=== PATIENT | female | born 1970 | race African-American/Black ===

== ENCOUNTER 2018-10-08 14:48 | Inpatient (IN) ==
[2018-10-08] MEDS: oxyCODONE/ACETAMINOPHEN 5-325 MG TABLET PO PRN ×2 (17:57→22:53)
[2018-10-08] MEDS: METOPROLOL SUCCINATE XL 100 MG TABLET PO SCH ×2 (17:57→20:36)
[2018-10-08] MEDS: DEXTROSE 5% LACTATED RINGERS 1,000 ML IV SCH (18:00)
[2018-10-08] MEDS: CLINDAMYCIN INJ 600 MG in PREMIX 1 EACH IV SCH (18:01)
[2018-10-08] MEDS: AZTREONAM 2,000 MG in SODIUM CHLORIDE 0.9% 100 ML IV SCH (18:38)
[2018-10-08] MEDS: FERROUS SULFATE 325 MG TABLET PO SCH (20:36)
[2018-10-08] MEDS ORDERED: IBUPROFEN 800 MG TABLET PO PRN (20:39)
[2018-10-09] MEDS: CLINDAMYCIN INJ 600 MG in PREMIX 1 EACH IV SCH ×3 (01:01→21:11)
[2018-10-09] MEDS: AZTREONAM 2,000 MG in SODIUM CHLORIDE 0.9% 100 ML IV SCH ×3 (02:17→19:18)
[2018-10-09] MEDS: DEXTROSE 5% LACTATED RINGERS 1,000 ML IV SCH ×3 (04:16→21:17)
[2018-10-09 05:36] LABS: Basophils # 0.1 10*3/uL (0.0-0.2); Basophils % 0.3 % (0.0-0.8); Eosinophils # 0.1 10*3/uL (0.0-0.87); Eosinophils % 0.3 % (0.00-10.9); Hematocrit 26.5 VOL% (35.7-47.0); Hemoglobin 8.1 GM/DL (12.0-16.0); Immature Granulocytes % 0.7 %; Immature Granulocytes Absolute 0.13 #; Lymphocytes # 1.8 10*3/uL (1.4-4.0); Lymphocytes % 9.1 % (21.3-54.2); Mean Corpuscular HGB Conc 30.6 GM/DL (32-36); Mean Corpuscular Volume 75.3 FL (87-102); Monocytes % 5.7 % (1.7-12.7); Neutrophils % 83.9 % (38.7-73.9); Platelet Count 304 T/CUMM (130-400); Red Blood Count 3.52 MC/CUMM (3.8-5.5); Red Cell Distribution Width 14.7 % (9.3-17.3); White Blood Count 19.5 T/CUMM (4-12)
[2018-10-09 05:54] LABS: Alanine Aminotransferase < 6 U/L (13-56); Albumin 2.4 G/DL (3.4-5.0); Alkaline Phosphatase 58 U/L (45-117); Aspartate Amino Transferase 6 U/L (0-37); Blood Urea Nitrogen 6 MG/DL (7-18); Calcium 8.2 MG/DL (8.5-10.1); Glucose 131 MG/DL (74-106); Osmolality,Calculated 276.5 MOS/KG (273-304); Total Protein 6.2 G/DL (6.4-8.3)
[2018-10-09] MEDS ORDERED: ONDANSETRON 4 MG/2 ML VIAL IV PRN (09:53)
[2018-10-09] MEDS ORDERED: MEPERIDINE 25 MG/1 ML VIAL IV PRN (09:53)
[2018-10-09] MEDS: KETOROLAC 30 MG/1 ML VIAL IV SCH ×3 (10:55→21:12)
[2018-10-09] MEDS ORDERED: DIAZEPAM 5 MG TABLET PO ONE (14:08)
[2018-10-09] MEDS ORDERED: MIDAZOLAM 2 MG/2 ML VIAL IV ONE (14:08)
[2018-10-09] MEDS ORDERED: fentaNYL 100 MCG/2 ML VIAL IV ONE (14:08)
[2018-10-09] MEDS ORDERED: SODIUM CHLORIDE 0.45% 1,000 ML IV SCH (14:30)
[2018-10-09] MEDS ORDERED: fentaNYL 100 MCG/2 ML VIAL ONE (15:06)
[2018-10-09] MEDS ORDERED: MIDAZOLAM 2 MG/2 ML VIAL ONE (15:06)
[2018-10-09] MEDS: FERROUS SULFATE 325 MG TABLET PO SCH ×2 (17:12→21:12)
[2018-10-09] MEDS: METOPROLOL SUCCINATE XL 100 MG TABLET PO SCH ×2 (17:12→21:12)
[2018-10-09] MEDS: PANTOPRAZOLE 40 MG TABLET PO SCH (17:12)
[2018-10-10] MEDS: AZTREONAM 2,000 MG in SODIUM CHLORIDE 0.9% 100 ML IV SCH ×3 (02:29→17:07)
[2018-10-10] MEDS: KETOROLAC 30 MG/1 ML VIAL IV SCH ×4 (03:23→21:47)
[2018-10-10] MEDS: CLINDAMYCIN INJ 600 MG in PREMIX 1 EACH IV SCH (03:24)
[2018-10-10 04:36] LABS: Basophils % 0.3 % (0.0-0.8); Eosinophils # 0.3 10*3/uL (0.0-0.87); Eosinophils % 3.4 % (0.00-10.9); Hematocrit 27.4 VOL% (35.7-47.0); Hemoglobin 8.4 GM/DL (12.0-16.0); Immature Granulocytes % 0.3 %; Immature Granulocytes Absolute 0.03 #; Lymphocytes # 1.5 10*3/uL (1.4-4.0); Lymphocytes % 15.6 % (21.3-54.2); Mean Corpuscular HGB Conc 30.7 GM/DL (32-36); Mean Corpuscular Volume 75.7 FL (87-102); Mean Platelet Volume 10.5 FL (9.6-12.0); Monocytes % 6.4 % (1.7-12.7); Platelet Count 316 T/CUMM (130-400); Red Blood Count 3.62 MC/CUMM (3.8-5.5); Red Cell Distribution Width 14.7 % (9.3-17.3); White Blood Count 9.6 T/CUMM (4-12)
[2018-10-10] MEDS: DEXTROSE 5% LACTATED RINGERS 1,000 ML IV SCH ×3 (08:04→21:19)
[2018-10-10] MEDS: METOPROLOL SUCCINATE XL 100 MG TABLET PO SCH ×2 (08:57→21:20)
[2018-10-10] MEDS: FERROUS SULFATE 325 MG TABLET PO SCH ×2 (08:58→21:20)
[2018-10-10] MEDS: PANTOPRAZOLE 40 MG TABLET PO SCH (08:58)
[2018-10-10] MEDS: hydroCHLOROthiazide 25 MG TABLET PO SCH (17:28)
[2018-10-11] MEDS: DEXTROSE 5% LACTATED RINGERS 1,000 ML IV SCH (01:52)
[2018-10-11] MEDS: AZTREONAM 2,000 MG in SODIUM CHLORIDE 0.9% 100 ML IV SCH ×2 (01:59→08:30)
[2018-10-11] MEDS: KETOROLAC 30 MG/1 ML VIAL IV SCH ×3 (01:59→15:20)
[2018-10-11] MEDS: hydroCHLOROthiazide 25 MG TABLET PO SCH (08:25)
[2018-10-11] MEDS: FERROUS SULFATE 325 MG TABLET PO SCH (08:25)
[2018-10-11] MEDS: METOPROLOL SUCCINATE XL 100 MG TABLET PO SCH (08:26)
[2018-10-11] MEDS: PANTOPRAZOLE 40 MG TABLET PO SCH (08:26)
[2018-10-11] MEDS ORDERED: cefTRIAXone 2,000 MG in SYRINGE 1 EACH IV SCH (15:00)
[2018-10-11 16:19] VITALS: BP 169/85
== END 2018-10-11 18:52 | disposition home health service (06) | DRG 863 ==
LOC: N.2E 14:48 → N.CT 14:48 → OBSVTOIN 16:35
PROVIDERS: ADMIT Obstetrics & Gynecology; ATTEND Obstetrics & Gynecology